=== PATIENT | male | born 1960 | race Caucasian/White ===

== ENCOUNTER 2021-08-03 11:31 | Outpatient (CLI) | payer BC ==
[2021-08-03 21:50] LABS: SARS-CoV-2 PCR by NAA Not Detected (NotDetected)
== END 2021-08-03 11:32 | disposition home or self-care (01) ==
LOC: CSHLAB 11:31
PROVIDERS: ATTEND Internal Medicine Gastroenterology
DX: Z20.822 Contact with and (suspected) exposure to COVID-19 (principal); K63.5 Polyp of colon
CPT/HCPCS: U0003; U0005

== ENCOUNTER → 2021-08-08 | Day surgery (SDC) | payer BC ==
[2021-08-03 14:40] VITALS: BMI 28.7
[~2021-08-08] MED LIST: Lidocaine 1% MPF 2 ML VIAL ONE; Lidocaine 1% PF 5 ML VIAL ONE; PROPOFOL 40 ML ONE
== END ==
LOC: CSHSDC 08:55
PROVIDERS: ATTEND Internal Medicine Gastroenterology
PROC: 0DJD8ZZ Inspection of Lower Intestinal Tract, Via Natural or Artificial Opening Endoscopic (ICD-10-PCS; principal; 2021-08-08)
DX: Z12.11 Encounter for screening for malignant neoplasm of colon (principal); Z86.010 Personal history of colon polyps; K57.30 Diverticulosis of large intestine without perforation or abscess without bleeding; K64.9 Unspecified hemorrhoids; I10 Essential (primary) hypertension; E11.9 Type 2 diabetes mellitus without complications; E78.5 Hyperlipidemia, unspecified; N40.0 Benign prostatic hyperplasia without lower urinary tract symptoms
CPT/HCPCS: J2704

== ENCOUNTER 2023-03-18 22:17 | Emergency (ER) | payer BC ==
[2023-03-18 23:42] LABS: #Eosinphils 0.2 10x3/uL (0.0-0.5); #Monocytes 0.7 10x3/uL (0.0-1.1); #Neutrophils 8.2 10x3/uL (1.5-8.4); %Basophils 0.4 % (0.0-2.0); %Eosinophils 2.3 % (0.0-6.0); %Lymphocytes 7.7 % (18.0-47.0); %Monocytes 7.3 % (0.0-10.0); %Neutrophils 81.8 % (40.0-75.0); Hematocrit 45.5 % (38.8-50.0); Hemoglobin 15.7 g/dL (13.5-17.5); Mean Corpuscular HGB CONC 34.5 g/dL (32.0-36.0); Mean Corpuscular Hemoglobin 28.5 pg (27.0-33.0); Mean Corpuscular Volume 82.6 fl (81.2-95.1); Mean Platelet Volume 9.8 fl (7.4-10.4); Platelet Count 340 10x3/uL (150-450); RBC Distribution Width 13.5 % (11.5-14.5); Red Blood Cell (RBC) Count 5.51 10x6/uL (4.32-5.72)
[2023-03-18 23:53] LABS: ALT (SGPT) 17 U/L (8-55); AST (SGOT) 21 U/L (5-34); Albumin 4.2 g/dL (3.4-4.8); Alkaline Phosphatase 100 U/L (40-110); Anion Gap 17 mmol/L (10-20); BUN (Urea Nitrogen) 20 mg/dL (8.4-25.7); Bilirubin, Total 1.6 mg/dL (0.2-1.2); Calc. Creatinine Clearance 0 mL/min (70-130); Calcium 9.7 mg/dL (7.8-10.44); Carbon Dioxide 32 mmol/L (23-31); Chloride 96 mmol/L (98-107); Estimated GFR 62; Globulin 3.7 g/dL (2.4-3.5); Glucose 249 mg/dL (80-115); Protein, Total 7.9 g/dL (5.8-8.1); Sodium 143 mmol/L (136-145)
[2023-03-18 23:59] LABS: Potassium 2.3 mmol/L (3.5-5.1)
[2023-03-19] LABS: Troponin I 0.022 ng/mL (< 0.028)
[2023-03-19] MEDS ORDERED: Potassium Chloride 20 MEQ TAB ONE (00:03)
[2023-03-19] MEDS ORDERED: Dexamethasone 10 MG/ML VIAL ONE (00:03)
== END 2023-03-19 00:40 | disposition short-term general hospital (02) ==
LOC: CSHERS 22:17
DX: G93.9 Disorder of brain, unspecified (principal); I10 Essential (primary) hypertension; F17.220 Nicotine dependence, chewing tobacco, uncomplicated; Z79.84 Long term (current) use of oral hypoglycemic drugs
CPT/HCPCS: 70450; 80053; 83605; 83735; 84443; 84484; 85025; 93005; J1100